=== PATIENT | female | born 1985 | race African-American/Black ===

== ENCOUNTER 2020-01-25 07:09 | Inpatient (IN) | payer MEDICAID ==
[~2020-01-25] VITALS: Ht 170.2 cm; Wt 128.8 kg
[2020-01-25] MEDS ORDERED: DEXT 5%/LR + PITOCIN 20UNITS/L 1,000 ML IV ONE (07:24)
[2020-01-25 09:37] LABS: HEMATOCRIT. 40.2 % (36.0-48.0); HEMOGLOBIN. 13.3 g/dL (12.0-16.0); MEAN CORPUSCULAR HEMOGLOBIN 29.9 pg (28.0-32.0); MEAN CORPUSCULAR VOLUME 90.2 fL (81.0-99.0); RED BLOOD CELL COUNT 4.46 mill/uL (4.2-5.4); RED CELL DISTRIBUTION WIDTH 13.9 % (11.6-14.6)
[2020-01-25 10:00] VITALS: BP 101/68
[2020-01-25 11:00] VITALS: BP 101/63
[2020-01-25 11:52] LABS: PLATELET 137 x1000/uL (130-400); PLATELET ESTIMATE NORMAL
[2020-01-25 11:55] LABS: MEAN PLATELET VOLUME 11.3 fl (7.4-10.4)
[2020-01-25 14:43] LABS: CLARITY URINE TURBID (CLEAR); COLOR URINE BLOODY (YELLOW); KETONES URINE 1+ (NEGATIVE); LEUKOCYTE ESTERASE URINE NEGATIVE (NEGATIVE); NITRITE URINE NEGATIVE (NEGATIVE); OCCULT BLOOD URINE 3+ (NEGATIVE); PROTEIN URINE 1+ (NEGATIVE); SPECIFIC GRAVITY URINE 1.026 (1.005-1.030)
[2020-01-25 15:22] LABS: CANNABINOID URINE SCREEN PRESUMTIVE POSITIVE (NEGATIVE)
[2020-01-25 15:23] LABS: OPIATES URINE SCREEN NEGATIVE (NEGATIVE); PHENCYCLIDINE URINE SCREEN NEGATIVE (NEGATIVE)
[2020-01-25 15:25] LABS: *AMPHETAMINES SCREEN URINE NEGATIVE (NEGATIVE)
[2020-01-25 15:27] LABS: *BENZODIAZEPINES SCREEN URINE NEGATIVE (NEGATIVE); METHADONE URINE SCREEN NEGATIVE (NEGATIVE)
[2020-01-25 15:29] LABS: *BARBITURATES SCREEN URINE NEGATIVE (NEGATIVE); *COCAINE SCREEN URINE NEGATIVE (NEGATIVE)
[2020-01-25] MEDS ORDERED: DEXT 5%/LR + PITOCIN 20UNITS/L 1,000 ML IV SCH (15:47)
[2020-01-25 15:59] LABS: BASOPHILS % 0.3 % (0.0-2.0); EOSINOPHILS % 0.2 % (0.0-5.0); HEMATOCRIT. 34.6 % (36.0-48.0); HEMOGLOBIN. 11.5 g/dL (12.0-16.0); LYMPHOCYTES % 13.5 % (20.0-50.0); MEAN CORPUSCULAR HEMOGLOBIN 29.7 pg (28.0-32.0); MEAN CORPUSCULAR VOLUME 89.6 fL (81.0-99.0); MEAN PLATELET VOLUME 11.1 fl (7.4-10.4); MONOCYTES % 4.8 % (2.0-8.0); NEUTROPHILS % 81.2 % (40.0-76.0); PLATELET 129 x1000/uL (130-400); RED BLOOD CELL COUNT 3.86 mill/uL (4.2-5.4); RED CELL DISTRIBUTION WIDTH 13.9 % (11.6-14.6)
[2020-01-25] MEDS ORDERED: IBUPROFEN 400MG TABLET PO PRN (16:00)
[2020-01-25] MEDS ORDERED: LANOLIN OINT 7GM TUBE TOP PRN (16:00)
[2020-01-25] MEDS ORDERED: BISACODYL 10MG SUPP PR PRN (16:00)
[2020-01-25] MEDS ORDERED: IBUPROFEN 800MG TABLET PO PRN (16:00)
[2020-01-25] MEDS ORDERED: BENZOCAINE/LANOLIN/ALOE VERA SPRAY TOP PRN (16:00)
[2020-01-25] MEDS ORDERED: ACETAMINOPHEN WITH CODEINE 300/30MG TABLET PO PRN (16:00)
[2020-01-25] MEDS ORDERED: GLYCERIN/WITCH HAZEL LEAF MEDICATED PAD TOP PRN (16:00)
[2020-01-25] MEDS ORDERED: HEMORRHOIDAL SUPP PR PRN (16:00)
[2020-01-25] MEDS ORDERED: DIPHENHYDRAMINE 25MG CAPSULE PO PRN (16:00)
[2020-01-25 16:02] LABS: INR 0.9; PARTIAL THROMBOPLASTIN TIME 27.1 sec (23.4-31.0); PROTHROMBIN TIME 10.1 sec (9.6-11.0)
[2020-01-25 16:29] LABS: HEPATITIS B SURFACE ANTIGEN NEGATIVE
[2020-01-25] MEDS ORDERED: METHYLERGONOVINE MALEATE 0.2MG TABLET PO SCH (17:00)
[2020-01-25] MEDS ORDERED: MAGNESIUM/ALUMINUM HYDROXIDE/SIMETHICONE 30ML UDC PO SCH (17:30)
[2020-01-25] MEDS ORDERED: SIMETHICONE 80MG TABLET CHEW PO SCH (18:00)
[2020-01-25 19:30] VITALS: BP 113/58
[2020-01-25] MEDS ORDERED: DOCUSATE SODIUM 100MG CAPSULE PO SCH (21:00)
[2020-01-26 04:00] VITALS: BP 114/79
[2020-01-26 06:33] LABS: BASOPHILS % 0.4 % (0.0-2.0); EOSINOPHILS % 0.7 % (0.0-5.0); HEMATOCRIT. 34.6 % (36.0-48.0); HEMOGLOBIN. 11.8 g/dL (12.0-16.0); LYMPHOCYTES % 21.7 % (20.0-50.0); MEAN CORPUSCULAR HEMOGLOBIN 30.8 pg (28.0-32.0); MEAN PLATELET VOLUME 11.2 fl (7.4-10.4); MONOCYTES % 6.2 % (2.0-8.0); PLATELET 138 x1000/uL (130-400); RED BLOOD CELL COUNT 3.84 mill/uL (4.2-5.4); RED CELL DISTRIBUTION WIDTH 13.9 % (11.6-14.6)
[2020-01-26 07:30] VITALS: BP 111/73
[2020-01-26] MEDS ORDERED: FERROUS SULFATE 325MG TABLET PO SCH (07:30)
[2020-01-26] MEDS ORDERED: PRENATAL VIT/FE FUMARATE/FA TABLET PO SCH (09:00)
[2020-02-01 15:10] LABS: CANNABINOID CONFIRMATION URINE Positive (.)
== END 2020-01-26 10:30 | disposition home or self-care (01) | DRG 560 ==
LOC: OBSVTOIN 07:09 → 8 EST LDRP 07:09 → 8EST 09:45
PROVIDERS: ADMIT Obstetrics & Gynecology; ATTEND Obstetrics & Gynecology
PROC: 10E0XZZ Delivery of Products of Conception, External Approach (ICD-10-PCS; principal; 2020-01-25)
DX: O77.0 Labor and delivery complicated by meconium in amniotic fluid (principal); O99.214 Obesity complicating childbirth; Z53.20 Procedure and treatment not carried out because of patient's decision for unspecified reasons; Z3A.39 39 weeks gestation of pregnancy; Z37.0 Single live birth
CPT/HCPCS: 36415; 80051; 80305; 80349; 81003; 85025; 86592; 86703; 86762; 86850; 86900; 87340; 99281; J2590

== ENCOUNTER 2022-10-04 11:24 | Emergency (ER) | payer MEDICAID ==
[~2022-10-04] VITALS: Ht 170.2 cm; Wt 140.0 kg
[2022-10-04] MEDS ORDERED: KETOROLAC 60MG/2ML VIAL IM STA (13:33)
[2022-10-04 14:20] VITALS: BP 125/82
[2022-10-04] MEDS ORDERED: IBUP-2029 PO (14:25)
== END 2022-10-04 15:24 | disposition home or self-care (01) ==
LOC: ER 11:52
DX: S80.01XA Contusion of right knee, initial encounter (principal); S93.491A Sprain of other ligament of right ankle, initial encounter; W01.0XXA Fall on same level from slipping, tripping and stumbling without subsequent striking against object, initial encounter; Y93.89 Activity, other specified; Y92.811 Bus as the place of occurrence of the external cause; Y99.8 Other external cause status
CPT/HCPCS: 73562; 73610; 99284; Z7610; J1885